=== PATIENT | male | born 1945 | race Caucasian/White ===

== ENCOUNTER 2016-03-10 16:15 | Observation (INO) | payer OTHER ==
[~2016-03-10] VITALS: Ht 182.9 cm; Wt 57.3 kg
[2016-03-10] MEDS ORDERED: MAGNEVIST 10ML IV ONE (16:16)
[2016-03-10] MEDS ORDERED: METOCLOPRAMIDE 10 MG/2 ML VIAL ONE ×2 (21:32→21:46)
[2016-03-10] MEDS ORDERED: DIPHENHYDRAMINE 50 MG/ML VIAL ONE ×2 (21:32→21:46)
[2016-03-10] MEDS ORDERED: ZOLPIDEM 5 MG TAB PO PRN (22:55)
[2016-03-10] MEDS ORDERED: DEXTROSE 50% SYRINGE 50 ML IV PRN (22:55)
[2016-03-10] MEDS ORDERED: GLUCAGON 1 MG VIAL IM PRN (22:55)
[2016-03-10] MEDS ORDERED: SALINE FLUSH 10 ML FLUSH PRN (22:55)
[2016-03-10] MEDS ORDERED: ACETAMINOPHEN 325 MG TAB PO PRN (22:55)
[2016-03-11 01:46] VITALS: BP_SYST 111; BP_SYST 124; RESP 17; TEMP 98.2; Ht 182.9 cm; Wt 57.3 kg
[2016-03-11 03:00] VITALS: BP_SYST 123; RESP 17; TEMP 97.7
[2016-03-11] MEDS ORDERED: SODIUM CHLORIDE 0.9% FLUSH BAG 500 ML IV SCH (06:00)
[2016-03-11 07:10] VITALS: BP_SYST 136
[2016-03-11 07:46] VITALS: BP_SYST 125; RESP 18; TEMP 98.4
[2016-03-11] MEDS ORDERED: SALINE FLUSH 10 ML FLUSH SCH (08:00)
[2016-03-11 09:00] VITALS: BP_SYST 123
[2016-03-11] MEDS ORDERED: CLOPIDOGREL 75 MG TAB PO SCH (09:00)
[2016-03-11 13:10] VITALS: BP_SYST 123; RESP 18; TEMP 98.4
[2016-03-11] MEDS ORDERED: Atorvastatin 20 MG TAB PO SCH (21:00)
== END 2016-03-11 09:37 | disposition home or self-care (01) ==
LOC: ENRESERVTM → ENRESERVDT → ER 16:15 → ENPENDDIS 22:51 → EMR 22:51 → PCU 03-11 00:08
PROVIDERS: ADMIT Internal Medicine; ATTEND Internal Medicine
DX: G43.409 Hemiplegic migraine, not intractable, without status migrainosus (principal); E78.00 Pure hypercholesterolemia, unspecified; G25.81 Restless legs syndrome; I73.9 Peripheral vascular disease, unspecified; F17.210 Nicotine dependence, cigarettes, uncomplicated; D53.9 Nutritional anemia, unspecified; Z79.899 Other long term (current) drug therapy; I65.22 Occlusion and stenosis of left carotid artery
CPT/HCPCS: 36415; 70450; 70553; 80053; 80061; 80307; 81003; 82607; 82746; 85025; 85610; 85730; 92610; 93005; 93306; 93880; 96374; 96375; 97161; 97165; 97799; 99285; A9579; G0378; G8978; G8979; G8980; G8987; G8988; G8989; G8996; G8997; G8998